=== PATIENT | female | born 1965 | race Caucasian/White ===

== ENCOUNTER 2020-11-06 09:49 | Emergency (ER) | payer OTHER ==
[~2020-11-06] VITALS: Ht 170.2 cm; Wt 68.2 kg
[2020-11-06] MEDS ORDERED: DICYCLOMINE HCL20 MG PO (10:03)
[2020-11-06] MEDS ORDERED: FAMOTIDINE40 MG PO (10:05)
[2020-11-06] MEDS ORDERED: CALCIUM CARBON500 MG PO (10:15)
[2020-11-06] MEDS ORDERED: TEGRETOL200 MG PO (10:15)
[2020-11-06] MEDS ORDERED: MULTI-VITAMIN1 EACH PO (10:15)
[2020-11-06] MEDS ORDERED: METAMUCIL FIBE3.4 GM PO (10:15)
== END 2020-11-06 10:45 | disposition home or self-care (01) ==
LOC: FSED 09:58
DX: M25.571 Pain in right ankle and joints of right foot (principal); G89.29 Other chronic pain; F31.9 Bipolar disorder, unspecified; F17.210 Nicotine dependence, cigarettes, uncomplicated
CPT/HCPCS: 99282